=== PATIENT | female | born 1985 | race Caucasian/White ===

== ENCOUNTER 2022-09-05 21:07 | Emergency (ER) | payer OTHER, SELFPAY ==
[2022-09-05 21:25] VITALS: BP 154/77; PULSE 84; RESP 16; TEMP 36.9; O2SAT 100; BMI 29.1
--- NOTE | 2022-09-06 02:58 | ED_ITS ---
HPI - URI/Sore Throat General Chief Complaint: Upper Respiratory Symptoms Stated Complaint: Thinks strep Time Seen by Provider: 09/06/22 02:57 Source: patient Mode of arrival: Ambulatory Limitations: no limitations History of Present Illness HPI Narrative: This is a 36-year-old female who is concern for strep. She has not had fever she is had swelling of her tonsils pain she sees some white patches. She states it hurts to swallow. She is not have any issues with secretions or saliva. She denies chest pain or shortness of breath she states she vomited twice today. She has not had any persistent vomiting. No diarrhea or constipation, no urinary symptoms. No rash or skin changes. She recently flew back from [place]. Patient denies any other medical issues. No daily medications. No prior surgeries. Denies tobacco, occasional alcohol, no substance abuse or illicit. Related Data Allergies Allergy/AdvReac Type Severity Reaction Status Date / Time No Known Drug Allergies Allergy Verified 09/06/22 03:44 Review of Systems Review of Systems ROS Unobtainable: All systems reviewed & are unremarkable except as noted in HPI and below Patient History Social History Smoking Status: Never smoker Smoking Status: Never smoker Substance Use Type: does not use Exam Narrative Exam Narrative: GEN: well nourished, well appearing female, alert and oriented x 3, patient harper ears to be in mild distress. HEENT: Atraumatic, pupils are equal round reactive to light, extraocular movements are intact, nares are clear, TMs are clear with no fluid, there is no conjunctival pallor. Throat is erythematous, bilateral tonsillar enlargement with exudate. Uvula is midline. Mild cervical lymphadenopathy. Normal speech, no muffled voice, no issue with saliva or swallowing secretions. HEART: Regular rate and rhythm without murmur, clicks, rubs. No carotid bruits, pulses are equal in upper and lower extremities LUNGS:Lungs clear to auscultation, no wheezes, rales, crackles, chest moves symmetrically ABD:bowel sounds normal, soft, non-tender, no guarding, rebound, rigidity, no masses noted, no hepatosplenomegal MSCL: Non-tender, no muscle atrophy, muscles strength 5/5 upper and lower extremities, full range of motion, normal gait NEURO:CN 2-12 intact, sensation normal SKIN: No rash, erythema other skin changes Initial Vital Signs Initial Vital Signs: Vital Signs Temperature 98.4 F 09/05/22 21:25 Pulse Rate 84 09/05/22 21:25 Respiratory Rate 16 09/05/22 21:25 Blood Pressure 154/77 H 09/05/22 21:25 Pulse Oximetry 100 09/05/22 21:25 Oxygen Delivery Method 09/05/22 21:25 Course Orders Ordered: ED Orders 09/06/22 03:10 Throat Culture Stat Discontinued Medications Dexamethasone (Dexamethasone 10 Mg/Ml Vial) 10 mg PO NOW ONE Stop: 09/06/22 03:11 Last Admin: 09/06/22 03:14 Dose: 10 mg Documented By: KT Vital Signs Vital signs: Vital Signs - 8 hr 09/05/22 21:25 Temperature 98.4 F Pulse Rate 84 Respiratory Rate 16 Blood Pressure 154/77 H Pulse Oximetry 100 Oxygen Delivery Method Room Air MDM - URI/Sore Throat Lab Data Labs: Point of Care Testing Rapid Strep A Negative MDM Narrative Medical decision making narrative: This is a 36-year-old female who meets at least 2 of 4 [facility] criteria, point of care strep is negative. Discussed with patient throat culture versus starting antibiotics she prefers throat culture. Will do a dose of dexamethasone orally x1 for discomfort. Patient did leave a good phone number when she checked in. Discussed if culture is positive will call in antibiotics but will take 48-72 hours to result. Discharge Plan Departure Patient Disposition: Home Clinical Impression: Pharyngitis Instructions: DI for Pharyngitis/Tonsillopharyngitis -- Adult Activity Restrictions/Additional Instructions: Your rapid strep was negative but a throat culture has been sent. This takes 48-72 hours result if positive we will contact you to call in antibiotics. You can take Tylenol up to a 1000 mg every 6 hours and/or ibuprofen up to 800 mg every 8 hours. Rinsing with warm salt water is sometimes helpful Please return for rapidly worsening symptoms, swelling of her throat, airway, inability to swallow your saliva or secretions, muffled voice, one-sided swelling or other new or concerning changes. Visit Report Forms: Patient Portal/API
[2022-09-06] MEDS: DEXAMETHASONE 10 MG/ML VIAL PO (03:14)
== END 2022-09-06 03:25 | disposition home or self-care (01) ==
PROVIDERS: Emergency Provider Emergency Medicine
DX: J02.9 Acute pharyngitis, unspecified (principal)
CPT/HCPCS: 87070; 87880; 99283; J1100